=== PATIENT | female | born 1955 | race Caucasian/White ===

== ENCOUNTER 2020-06-30 09:13 | Emergency (ER) | payer MEDICARE, SELFPAY ==
--- NOTE | ~2020-06-30 | XR_ITS ---
XR chest 2V DATE: 06/30/2020 09:55 INDICATION: Productive cough. Smoker. TECHNIQUE: 2 views COMPARISON: 07/04/2012 two-view chest FINDINGS: Bilateral hyperinflation suggesting obstructive airways disease. No pulmonary infiltrate or consolidation, pleural effusion or pulmonary vascular congestion or pneumothorax. Normal heart size. No hilar or mediastinal enlargement. Diffuse osteopenia. Mild thoracic and lumbar scoliosis. IMPRESSION: Bilateral hyperinflation consistent with COPD Reviewed, dictated and finalized at location A.
--- NOTE | 2020-06-30 09:20 | ED.GENADULT ---
HPI - General Adult General Chief complaint: Upper Respiratory Infection Stated complaint: symptoms of covid Time Seen by Provider: 06/30/20 09:21 Source: patient Mode of arrival: ambulatory Limitations: no limitations History of Present Illness HPI narrative: 64-year-old female patient presents to the [facility] with complaints of cold symptoms for the past 5 days. Patient states about 2 days ago she was running a low-grade fever of about 100. Patient states she has had a runny nose, stuffy nose, headache, cough and coughing up sputum at times. Denies chest pain or shortness of breath at this time. Denies any ear pain. Patient states she has had a little bit of a scratchy throat. Patient states she has been taking [id number] Tylenol, Robitussin and Claritin. Patient did receive her first Covid vaccine but has not yet gotten her second 1. Patient is an active smoker. Related Data Home Medications Medication Instructions Recorded Confirmed benztropine 0.5 mg PO DAILY 06/30/20 06/30/20 citalopram 10 mg PO DAILY 06/30/20 06/30/20 citalopram 40 mg PO DAILY 06/30/20 06/30/20 linaclotide [Linzess] 145 mcg PO QAM 06/30/20 06/30/20 meloxicam 7.5 mg PO DAILY 06/30/20 06/30/20 mirtazapine 7.5 mg PO DAILY 06/30/20 06/30/20 propranolol 40 mg PO TID 06/30/20 06/30/20 risperidone 0.5 mg PO DAILY 06/30/20 06/30/20 topiramate 50 mg PO BID 06/30/20 06/30/20 trazodone 100 mg PO DAILY 06/30/20 06/30/20 Allergies Allergy/AdvReac Type Severity Reaction Status Date / Time No Known Allergies Allergy Verified 06/30/20 09:47 Review of Systems Review of Systems: Narrative: CONSTITUTIONAL: Positive low-grade fever, denies chills, or sweats. EYES: Denies visual changes, redness, or discharge. ENT: Positive rhinorrhea, congestion, sore throat, denies otalgia. CARDIOVASCULAR: Denies chest pain, palpitations, or edema. RESPIRATORY: Positive cough, denies dyspnea. GASTROINTESTINAL: Denies abdominal pain, nausea, vomiting, or diarrhea. GENITOURINARY: Denies dysuria or hematuria. SKIN: Denies rash or itching. MUSCULOSKELETAL: Denies back pain, joint pain, or myalgia. NEUROLOGIC: Positive headache, denies numbness, or weakness. PSYCHIATRIC: Denies anxiety or depression. [facility] Past Medical History Medical History (Updated 06/30/20 @ 10:03 by BARRETT Talavera) Anxiety COPD (chronic obstructive pulmonary disease) Depression Tremors of nervous system Surgical History Surgical History (Updated 06/30/20 @ 09:52 by BARRETT Talavera) H/O lumbar discectomy H/O shoulder surgery Right torn rotator cuff History of appendectomy Hx of cholecystectomy Comments At the time of my signature I agree with nursing past medical history, surgical, social, and family history. There is no relevant family history pertinent to the presenting complaint. Exam Narrative: Exam Narrative: GENERAL: Well-appearing, well-nourished, and in no acute distress. HEAD: Normocephalic, atraumatic. EYES: PERRLA and EOMI. ENT: Nares with erythema and edema noted bilaterally, no rhinorrhea or epistaxis. Mucous membranes moist. Posterior pharynx with slight postnasal drip present. Bilateral TMs with no erythema, or foreign bodies in the canal. NECK: Supple. No lymphadenopathy CHEST: Clear to auscultation. No respiratory distress. Patient able talk in clear complete sentences. No tripoding noted. HEART: Regular rate and rhythm. No murmur heard. Normal peripheral pulses. ABDOMEN: Soft, nontender, nondistended, normal active bowel sounds. EXTREMITIES: Normal range of motion. No edema. SKIN: Warm, dry, no rash. NEURO: No focal deficits. Alert and oriented x3. Course Reevaluation(s) Reevaluation #1: Reevaluated patient after her x-ray had resulted. Notified her that her x-ray does not show any obvious evidence of pneumonia. Discussed with patient that her rapid Covid today is negative. Discussed with patient we will send a PCR off just to be sure that she does
[2020-06-30 09:26] VITALS: BP 119/69; PULSE 69; RESP 20; TEMP 36.6; O2SAT 100
[2020-07-01 13:55] LABS: SARS-CoV-2 RNA PCR Negative
== END 2020-06-30 10:08 | disposition home or self-care (01) ==
PROVIDERS: Emergency Provider Nurse Practitioner Family; PCP Nurse Practitioner Family
DX: B34.9 Viral infection, unspecified (principal); Z20.822 Contact with and (suspected) exposure to COVID-19; F41.9 Anxiety disorder, unspecified; F32.9 Major depressive disorder, single episode, unspecified; J44.9 Chronic obstructive pulmonary disease, unspecified; R25.1 Tremor, unspecified
CPT/HCPCS: 71046; 87426; 99213; C9803; G0463; U0003; U0005

== ENCOUNTER 2021-11-05 09:57 | Emergency (ER) | payer MEDICARE, SELFPAY ==
--- NOTE | ~2021-11-05 | XR_ITS ---
EXAMINATION: [id number] DATE: 11/05/2021 10:37 INDICATION: Left chest pain. TECHNIQUE: A frontal view of the chest and 2 views on 3 radiographs of the left ribs were obtained. COMPARISON: Chest 2 views 06/30/2020 FINDINGS: There is stable mild scarring at the lung apices. No pleural effusion or pneumothorax. The heart is normal. There is a right shoulder arthroplasty. Surgical clips in the right upper quadrant a re likely from cholecystectomy. There are fractures of left fifth and sixth ribs. IMPRESSION: 1. Fractures of left fifth and sixth ribs. Reviewed, dictated and finalized at location A.
--- NOTE | 2021-11-05 09:59 | ED.GENADULT ---
HPI - General Adult General Stated complaint: rib pain on left Time Seen by Provider: 11/05/21 10:59 Mode of arrival: ambulatory Limitations: no limitations History of Present Illness HPI narrative: 66-year-old female presents with concern for left rib pain under her left breast. She reports Wednesday she was cleaning her bathtub, leaning over it in an awkward angle when she felt a pop and then pain. She reports pain since then to that area worsening pain with deep breathing and movement. Reports she called her primary doctor who sent her here. She denies any shortness of breath. Reports she takes pain medicine for her back which she has been taking, reports she has tried ibuprofen with no relief. MD complaint: Rib pain Related Data Home Medications Medication Instructions Recorded Confirmed benztropine 0.5 mg tablet 0.5 mg PO DAILY 06/30/20 06/30/20 citalopram 10 mg tablet 10 mg PO DAILY 06/30/20 06/30/20 citalopram 40 mg tablet 40 mg PO DAILY 06/30/20 06/30/20 linaclotide 145 mcg capsule 145 mcg PO QAM 06/30/20 06/30/20 (Linzess) meloxicam 7.5 mg tablet 7.5 mg PO DAILY 06/30/20 06/30/20 mirtazapine 7.5 mg tablet 7.5 mg PO DAILY 06/30/20 06/30/20 propranolol 20 mg tablet 40 mg PO TID 06/30/20 06/30/20 risperidone 0.5 mg tablet 0.5 mg PO DAILY 06/30/20 06/30/20 topiramate 50 mg tablet 50 mg PO BID 06/30/20 06/30/20 trazodone 100 mg tablet 100 mg PO DAILY 06/30/20 06/30/20 Allergies Allergy/AdvReac Type Severity Reaction Status Date / Time No Known Allergies Allergy Verified 11/05/21 10:29 Review of Systems Review of Systems: CONSTITUTIONAL: Denies malaise, chills, sweats, or fever. CARDIOVASCULAR: Denies chest pain, palpitations, or edema. RESPIRATORY: Denies cough or dyspnea. Reports rib pain GASTROINTESTINAL: Denies abdominal pain SKIN: Denies redness, bruising, swelling, rash MUSCULOSKELETAL: Reports left anterior rib pain NEUROLOGIC: Denies numbness, weakness All systems reviewed & are unremarkable except as noted in HPI and below PMFSH Past Medical History Medical History (Updated 11/05/21 @ 11:03 by Tierney Lacy NP) Anxiety COPD (chronic obstructive pulmonary disease) Depression Tremors of nervous system Surgical History Surgical History (Updated 06/30/20 @ 09:52 by BARRETT Talavera) H/O lumbar discectomy H/O shoulder surgery Right torn rotator cuff History of appendectomy Hx of cholecystectomy Comments At time of signature, agree with nursing past medical, surgical, social and family history. There is no relevant family history pertinent to the presenting complaint Exam Narrative: GENERAL: Well-appearing, well-nourished, and in no acute distress. HEAD: Normocephalic, atraumatic. EYES: PERRLA, sclera clear ENT: Nares clear. Mucous membranes moist. NECK: Supple. CHEST: No respiratory distress. Clear to auscultation. No bony deformities, no asymmetry. Speaks in full sentences. Left anterior rib tenderness under the left breast HEART: Regular rate and rhythm. No murmur heard. SKIN: Warm, dry, no visible rash. No bruising, erythema, warmth noted to the chest wall NEURO: Alert and oriented x3. PSYCH: Normal mood and affect Course Course Emergency Course: Patient is aware of diagnosis, understands and agrees to treatment plan. Anticipatory guidance given. Patient agrees to follow-up as directed and is aware of reasons to seek care at the emergency department. Portions of this record may have been created with voice recognition software Level of Care: Express Care Visit Vital Signs Vital signs: Reviewed. Medical Decision Making MDM Narrative Medical decision making narrative: Exam findings and imaging show no acute concerns or changes; patient is non-toxic appearing and is in no distress. Patient is appropriate for outpatient treatment and follow-up. Differential Diagnosis Differential Diagnosis: Rib fracture, rib contusion, pneumonia Imaging Data My impression: Imag
[2021-11-05 10:14] VITALS: BP 128/87; PULSE 76; RESP 18; TEMP 37.4; O2SAT 100
== END 2021-11-05 11:09 | disposition home or self-care (01) ==
PROVIDERS: Emergency Provider Nurse Practitioner; PCP Nurse Practitioner Family
DX: S22.42XA Multiple fractures of ribs, left side, initial encounter for closed fracture (principal); X50.9XXA Other and unspecified overexertion or strenuous movements or postures, initial encounter; F41.9 Anxiety disorder, unspecified; F32.A Depression, unspecified; J44.9 Chronic obstructive pulmonary disease, unspecified
CPT/HCPCS: 71101; 99213; G0463

== ENCOUNTER 2021-12-09 10:08 | Emergency (ER) | payer MEDICARE, SELFPAY ==
--- NOTE | ~2021-12-09 | XR_ITS ---
EXAMINATION: XR hand LT min 3V DATE: 12/09/2021 10:28 INDICATION: Left hand pain at the fourth and fifth metacarpals after the head was slammed in a door. TECHNIQUE: Posteroanterior, oblique and lateral views of the left hand were obtained. COMPARISON: None. FINDINGS: Alignment is normal. No fracture. Polyarticular osteoarthritis, moderate severity at the first carpom etacarpal, first interphalangeal fourth and fifth proximal interphalangeal and at the second-fifth di stal interphalangeal joints and mild at the midcarpal, triscaphe, first metacarpophalangeal and remai stephon interphalangeal joints. Soft tissues are unremarkable. IMPRESSION: 1. Mild to moderate polyarticular osteoarthritis. No acute osseous abnormality. Reviewed, dictated and finalized at location B.
[2021-12-09 10:17] VITALS: BP 116/69; PULSE 90; RESP 16; TEMP 36.8; O2SAT 100
--- NOTE | 2021-12-09 11:39 | ED.GENADULT ---
HPI - General Adult General Chief complaint: Extremity Injury, Upper Stated complaint: Left Hand Injury Source: patient Mode of arrival: ambulatory Limitations: no limitations History of Present Illness HPI narrative: Patient presents for evaluation of left hand pain since yesterday. She indicates her hand got caught in a truck door that was being closed. Since that time she has had constant pain, worse with movement. She rates her pain 8 out of 10 in severity. No paresthesias. She is right-hand dominant. She has chronic pain for which she takes hydrocodone. She receives #30/month of 7.5/325mg. She has been taking 400mg ibuprofen every 6 hr as needed for pain without considerable improvement in her symptoms thereafter. No additional complaints or concerns. Related Data Home Medications Medication Instructions Recorded Confirmed citalopram 10 mg tablet 10 mg PO DAILY 06/30/20 11/05/21 citalopram 40 mg tablet 40 mg PO DAILY 06/30/20 11/05/21 linaclotide 145 mcg capsule 145 mcg PO QAM 06/30/20 11/05/21 (Linzess) topiramate 50 mg tablet 50 mg PO BID 06/30/20 11/05/21 albuterol sulfate 90 mcg/actuation 2 puff inhalation Q4-6H PRN 12/09/21 12/09/21 aerosol inhaler (Ventolin HFA) Shortness Of Breath Or Wheezing benztropine 1 mg tablet 1 mg PO DAILY 12/09/21 12/09/21 buspirone 30 mg tablet 15 mg PO Q6H 12/09/21 12/09/21 celecoxib 200 mg capsule 200 mg PO DAILY 12/09/21 12/09/21 donepezil 10 mg tablet 10 mg PO QHS 12/09/21 12/09/21 esomeprazole magnesium 20 mg 20 mg PO DAILY 12/09/21 12/09/21 capsule,delayed release galcanezumab-gnlm 120 mg/mL 120 mg subcut MONTHLY 12/09/21 12/09/21 subcutaneous pen injector (Emgality Pen) hydrocodone 7.5 mg-acetaminophen 1 tablet PO Q8H PRN Pain 12/09/21 12/09/21 325 mg tablet hydroxyzine HCl 25 mg tablet 25 mg PO DAILY 12/09/21 12/09/21 primidone 50 mg tablet 200 mg PO QHS 12/09/21 12/09/21 risperidone 1 mg tablet 1 mg PO QHS 12/09/21 12/09/21 trazodone 150 mg tablet 150 mg PO DAILY 12/09/21 12/09/21 venlafaxine 150 mg 150 mg PO DAILY 12/09/21 12/09/21 capsule,extended release 24 hr venlafaxine 37.5 mg 37.5 mg PO DAILY 12/09/21 12/09/21 capsule,extended release 24 hr Allergies Allergy/AdvReac Type Severity Reaction Status Date / Time No Known Allergies Allergy Verified 12/09/21 10:35 Review of Systems Review of Systems: CONSTITUTIONAL: Denies fever, chills, or sweats. EYES: Denies visual changes, redness, or discharge. ENT: Denies rhinorrhea, congestion, sore throat, or otalgia. CARDIOVASCULAR: Denies chest pain, palpitations, or edema. RESPIRATORY: Denies cough or dyspnea. GASTROINTESTINAL: Denies abdominal pain, nausea, vomiting, or diarrhea. GENITOURINARY: Denies dysuria or hematuria. SKIN: Denies rash or itching. MUSCULOSKELETAL: Reports left hand pain. NEUROLOGIC: Denies headache, numbness, dizziness, or weakness. PSYCHIATRIC: Denies anxiety or depression. [facility] Past Medical History Medical History Anxiety Chronic low back pain COPD (chronic obstructive pulmonary disease) Depression Tremors of nervous system Surgical History Surgical History H/O lumbar discectomy H/O shoulder surgery Right torn rotator cuff History of appendectomy Hx of cholecystectomy Family History Family History (Updated 12/09/21 @ 12:03 by BARRETT Riley, ) Mother Family history non-contributory Social History Social History Smoking status: Current every day smoker Tobacco type: cigarettes Substance use: never Living arrangements: alone Gender identity (if verbalized by the patient): Female Spiritual care concerns: No Exam Narrative: GENERAL: Well-appearing, well-nourished, and in no acute distress. HEAD: Normocephalic, atraumatic. EYES: PERRLA and EOMI. ENT: Malik
== END 2021-12-09 10:50 | disposition home or self-care (01) ==
PROVIDERS: Emergency Provider Nurse Practitioner; PCP Nurse Practitioner Family
DX: S60.222A Contusion of left hand, initial encounter (principal); X58.XXXA Exposure to other specified factors, initial encounter; J44.9 Chronic obstructive pulmonary disease, unspecified; F41.9 Anxiety disorder, unspecified; F32.A Depression, unspecified; F17.210 Nicotine dependence, cigarettes, uncomplicated
CPT/HCPCS: 73130; 99213; G0463

== ENCOUNTER 2023-06-25 14:59 | Emergency (ER) | payer MEDICARE, SELFPAY ==
--- NOTE | 2023-06-25 15:00 | ED.URI ---
HPI - URI/Sore Throat General Chief Complaint: Upper Respiratory Infection Stated Complaint: Can't take deep breaths/cough Time Seen by Provider: 06/25/23 15:07 Source: patient, RN notes reviewed and old records reviewed Mode of arrival: ambulatory Limitations: no limitations History of Present Illness HPI Narrative: 67-year-old female presents to the [facility] with complaints of a left-sided chest pain, cough and trouble taking deep breaths. Denies any radiation of pain. States the pain is pretty constant in the left chest area, holding the breast area. Recently treated with azithromycin and Augmentin for pneumonia on 06/09 Patient is a smoker Patient reports that she has taken her prescribed oxycodone and muscle relaxer and is not making the pain any better. States the pain is worse so she came in for an evaluation Related Data Home Medications Medication Instructions Recorded Confirmed citalopram 10 mg tablet 10 mg PO DAILY 06/30/20 12/09/21 citalopram 40 mg tablet 40 mg PO DAILY 06/30/20 12/09/21 linaclotide 145 mcg capsule 145 mcg PO QAM 06/30/20 12/09/21 (Linzess) topiramate 50 mg tablet 50 mg PO BID 06/30/20 12/09/21 albuterol sulfate 90 mcg/actuation 2 puff inhalation Q4-6H PRN 12/09/21 12/09/21 aerosol inhaler (Ventolin HFA) Shortness Of Breath Or Wheezing benztropine 1 mg tablet 1 mg PO DAILY 12/09/21 12/09/21 buspirone 30 mg tablet 15 mg PO Q6H 12/09/21 12/09/21 celecoxib 200 mg capsule 200 mg PO DAILY 12/09/21 12/09/21 donepezil 10 mg tablet 10 mg PO QHS 12/09/21 12/09/21 esomeprazole magnesium 20 mg 20 mg PO DAILY 12/09/21 12/09/21 capsule,delayed release hydroxyzine HCl 25 mg tablet 25 mg PO DAILY 12/09/21 12/09/21 primidone 50 mg tablet 200 mg PO QHS 12/09/21 12/09/21 risperidone 1 mg tablet 1 mg PO QHS 12/09/21 12/09/21 trazodone 150 mg tablet 150 mg PO DAILY 12/09/21 12/09/21 Symbicort 06/25/23 atogepant 60 mg tablet (Qulipta) mg 06/25/23 dicyclomine 20 mg tablet mg 06/25/23 methocarbamol 500 mg tablet mg 06/25/23 06/25/23 oxycodone-acetaminophen 5 mg-325 tablet 06/25/23 mg tablet Allergies Allergy/AdvReac Type Severity Reaction Status Date / Time No Known Allergies Allergy Verified 12/09/21 10:35 Review of Systems Review of Systems: All systems reviewed & are unremarkable except as noted in HPI and below Constitutional: Constitutional: Reports no additional constitutional complaints Eyes: Eyes: Reports no additional eye complaints ENT: Reports system reviewed and no additional complaints, except as documented Cardiovascular: Cardiovascular: Reports as per HPI, Reports chest pain and Reports dyspnea Respiratory: Respiratory: Reports as per HPI, Denies chest congestion, Reports cough and Reports dyspnea Gastrointestinal: Gastrointestinal: Reports no additional gastrointestinal complaints, Denies abdominal pain, Denies nausea and Denies vomiting Musculoskeletal: Musculoskeletal: Reports no additional musculoskeletal complaints Integumentary/Breasts: Skin/Breast: Reports system reviewed and no additional complaints, except as docu Neurologic: Reports system reviewed and no additional complaints, except as documented Psychiatric: Psychiatric: Reports no additional psychiatric complaints Allergic/Immunologic: Allergic/Immunologic: Reports no additional allergic/immunologic complaints [facility] Past Medical History Medical History Anxiety Chronic low back pain COPD (chronic obstructive pulmonary disease) Depression Tremors of nervous system Surgical History Surgical History H/O lumbar discectomy H/O shoulder surgery Right torn rotator cuff History of appendectomy Hx of cholecystectomy Family History Family History Mother Family history non-contributory Social History Social History (Reviewed 06/25/23 @ 19
[2023-06-25 15:05] VITALS: BP 132/78; PULSE 83; RESP 16; TEMP 37.3; O2SAT 98
[2023-06-25 15:09] VITALS: BP 132/78; PULSE 83; RESP 16; TEMP 37.3; O2SAT 98
--- NOTE | 2023-06-25 15:12 | ECG_ITS ---
SEE SCANNED COPY FOR CONFIRMED REPORT MTDD
--- NOTE | 2023-06-25 15:46 | PC.NURSE ---
at 1525 daughter in law returned to provide transportation to er for further f/u. declined ems transfer. signed ama sheet.
== END 2023-06-25 15:33 | disposition short-term general hospital (02) ==
PROVIDERS: Emergency Provider Nurse Practitioner
DX: R07.89 Other chest pain (principal); R06.02 Shortness of breath; F17.210 Nicotine dependence, cigarettes, uncomplicated; J44.9 Chronic obstructive pulmonary disease, unspecified; F41.9 Anxiety disorder, unspecified; F32.A Depression, unspecified
CPT/HCPCS: 93005; 99213; G0463